=== PATIENT | male | born 1975 | race Caucasian/White ===

== ENCOUNTER 2016-08-17 06:12 | Emergency (ER) | payer SELFPAY ==
[2016-08-17] MEDS ORDERED: IBUPROFEN 800 MG TABLET PO ONE (07:55)
--- NOTE | 2016-08-17 08:52 | RADIOLOGY REPORT (SQ) ---
EXAM DESCRIPTION: RIBS RIGHT W/PA CHEST COMPLETED DATE/TIME: 08/17/2016 8:07 am REASON FOR STUDY: 3 rib fx 2 weeks ago COMPARISON: None. TECHNIQUE: Frontal view of the chest and additional views of the right ribs acquired. NUMBER OF VIEWS: PA CHEST, right rib detail three views LIMITATIONS: None. FINDINGS: FRONTAL CXR: No pneumothorax. No pleural effusion. No atelectasis or infiltrates. Cardi ac silhouette size, annelise unremarkable. RIBS: Acute or subacute right posterior 5th rib with over riding of the distal fracture fragment by 2 cm. Acute or early subacute right lateral 7th, 8th and 9th rib fractures are present. No left-sided rib fractures are present. OTHER: Other bony structures in the field of view are intact. IMPRESSION: NO PNEUMOTHORAX. Right-sided 5th, 7th 8th and 9th rib fractures. COMMENT: SITE OF TRAUMA/COMPLAINT MARKED/STAMP COMPLETED: YES. TECHNICAL DOCUMENTATION: JOB ID: [id number] [employer]- All Rights Reserved
--- NOTE | 2016-08-17 08:57 | ER Document Report ---
ED General - General Chief Complaint: Rib Pain Stated Complaint: BACK PAIN Time Seen by Provider: 08/17/16 07:26 Mode of Arrival: Ambulatory Information source: Patient Notes: 41-year-old male history of fall 2 weeks ago with after 3 rib fractures presents with complaints of sharp pain in his back where his rib is broken. Patient denies any numbness or weakness loss of bowel or bladder function. Patient states that the pain improved significantly with Motrin, that he was given narcotics but he threw it away since it caused him to be constipated TRAVEL OUTSIDE OF THE [place] IN LAST 30 DAYS: No - HPI Onset: Other - 2 week Duration Onset/Duration: Persistent Quality of pain: Sharp Severity: Mild Pain Level: 1 Associated symptoms: None Exacerbated by: Movement Relieved by: Denies Similar symptoms previously: Yes Recently seen / treated by doctor: Yes - Related Data Allergies/Adverse Reactions: No Known Allergies Allergy (Verified 08/17/16 07:44) Home Medications: Current Home Medications No Home Medications 08/17/16 [History] Past Medical History - Social History Smoking Status: Never Smoker Cigarette use (# per day): No Chew tobacco use (# tins/day): No Smoking Education Provided: No Frequency of alcohol use: Occasional Drug Abuse: Marijuana Family History: Reviewed & Not Pertinent Patient has suicidal ideation: No Patient has homicidal ideation: No Pulmonary Medical History: Denies: Hx Tuberculosis Renal/ Medical History: Denies: Hx Peritoneal Dialysis Past Surgical History: Denies: Hx Pacemaker - Immunizations Hx Diphtheria, Pertussis, Tetanus Vaccination: No Review of Systems - Review of Systems Notes: REVIEW OF SYSTEMS: CONSTITUTIONAL : Denies fever, chills, or sweats. Denies recent illness. EENT: Denies eye, ear, throat, or mouth pain or symptoms. Denies nasal or sinus congestion or discharge. Denies throat, tongue, or mouth swelling or difficulty swallowing. CARDIOVASCULAR: Denies chest pain. Denies palpitations or racing or irregular heart beat. Denies ankle edema. RESPIRATORY: Denies cough, cold, or chest congestion. Denies shortness of breath, difficulty breathing, or wheezing. GASTROINTESTINAL: Denies abdominal pain or distention. Denies nausea, vomiting , or diarrhea. Denies blood in vomitus, stools, or per rectum. Denies black, tarry stools. Denies constipation. GENITOURINARY: Denies difficulty urinating, painful urination, burning, frequency, blood in urine, or discharge. MUSCULOSKELETAL: Admits to right posterior rib pain SKIN: Denies rash, lesions or sores. HEMATOLOGIC : Denies easy bruising or bleeding. LYMPHATIC: Denies swollen, enlarged glands. NEUROLOGICAL: Denies confusion or altered mental status. Denies passing out or loss of consciousness. Denies dizziness or lightheadedness. Denies headache. Denies weakness or paralysis or loss of use of either side. Denies problems with gait or speech. Denies sensory loss, numbness, or tingling. Denies seizures. PSYCHIATRIC: Denies anxiety or stress. Denies depression, suicidal ideation, or homicidal ideation. ALL OTHER SYSTEMS REVIEWED AND NEGATIVE. Dictation was performed using [employer] voice recognition software PHYSICAL EXAMINATION: GENERAL: Well-appearing, well-nourished and in no acute distress. HEAD: Atraumatic, normocephalic. EYES: Pupils equal round and reactive to light, extraocular movements intact, sclera anicteric, conjunctiva are normal. ENT: Nares patent, oropharynx clear without exudates. Moist mucous membranes. NECK: Normal range of motion, supple without lymphadenopathy LUNGS: Breath sounds clear to auscultation bilaterally and equal. No wheezes rales or rhonchi. HEART: Regular rate and rhythm without murmurs ABDOMEN: Soft, nontender, nondistended abdomen. No guarding, no rebound. No masses appreciated. Musculoskeletal: Normal range of motion, no pitting or edema. No cyanosis. NEUROLOGICAL: Cranial nerves grossly intact. Normal speech, normal gait. Normal sensory, motor exams PSYCH: Normal mood, normal affect. SKIN: Warm, Dry, normal turgor, no rashes or lesions noted. Physical Exam - Vital signs Vitals: Temp Pulse Resp BP Pulse Ox 97.3 F 91 18 128/89 H 98 08/17/16 06:18 08/17/16 06:18 08/17/16 06:18 08/17/16 06:18 08/17/16 06:18 Course - Re-evaluation Re-evalutation: 08/17/16 08:55 Patient looks extremely well he has done quite well for someone with multiple rib fractures repeat x-ray does note for rib fractures, patient believes he only had 3. Otherwise she looks well is in no distress having no fevers no shortness of breath no pneumothorax. Patient will be discharged home to continue with Motrin He wishes to be cleared for work and I believe as long as he is not over exerting himself he will be stable to do so After performing a Medical Screening Examination, I estimate there is LOW risk for RUPTURED ESOPHAGUS, PNEUMOTHORAX, PULMONARY EMBOLISM, ACUTE CORONARY SYNDROME, OR THORACIC AORTIC DISSECTION, thus I consider the discharge disposition reasonable. I have reevaluated this patient multiple times and no significant life threatening changes are noted. The patient and I have discussed the diagnosis and risks, and we agree with discharging home with close follow-up. We also discussed returning to the Emergency Department immediately if new or worsening symptoms occur. We have discussed the symptoms which are most concerning (e.g., bloody sputum, worsening pain or shortness of breath) that necessitate immediate return. - Vital Signs Vital signs: Temp Pulse Resp BP Pulse Ox 97.3 F 91 18 128/89 H 98 08/17/16 06:18 08/17/16 06:18 08/17/16 06:18 08/17/16 06:18 08/17/16 06:18 - Diagnostic Test Radiology reviewed: Image reviewed, Reports reviewed - rib fx , report given to patient Discharge - Discharge Clinical Impression: Ribs, multiple fractures Qualifiers: Encounter type: subsequent encounter Fracture type: closed Laterality: right Fracture healing: with routine healing Qualified Code(s): S22.41XD - Multiple fractures of ribs, right side, subsequent encounter for fracture with routine healing Condition: Stable Disposition: HOME, SELF-CARE Instructions: Rib Injuries and Fractures ([facility]) Forms: Return to Work Referrals: YOLI RIVERA MD [Primary Care Provider] - Follow up tomorrow
[2016-08-17 09:03] VITALS: BP 126/86
== END 2016-08-17 09:03 | disposition home or self-care (01) ==
LOC: ER 06:12
DX: S22.41XD Multiple fractures of ribs, right side, subsequent encounter for fracture with routine healing (principal); W19.XXXD Unspecified fall, subsequent encounter; Y99.0 Civilian activity done for income or pay
CPT/HCPCS: 99283

== ENCOUNTER 2017-08-06 05:37 | Emergency (ER) | payer SELFPAY ==
[2017-08-06] MEDS ORDERED: HYDROXYZINE PAMOATE 50 MG CAPSULE PO ONE (07:34)
--- NOTE | 2017-08-06 07:41 | ER Document Report ---
ED General - General Chief Complaint: Psych Problem Stated Complaint: ANXIETY Time Seen by Provider: 08/06/17 06:08 TRAVEL OUTSIDE OF THE [place] IN LAST 30 DAYS: No - HPI Patient complains to provider of: Anxiety Notes: Patient coming in for evaluation of anxiety. Patient states feeling much better after waiting here in ER. Patient states recently lost both his parents. Patient states he thinks about it although it has been gaining throughout the day to do most time take his mind off patient states he was seen by psychiatric providers here in the [facility] port and was given medication he thinks was called Vistaril patient states he left the medication in his pocket that went to the wash machine. Patient otherwise denies any homicidal suicidal ideation. Denies any fever chills nausea vomiting diarrhea. - Related Data Allergies/Adverse Reactions: No Known Allergies Allergy (Verified 08/17/16 07:44) Past Medical History - Social History Smoking Status: Never Smoker Chew tobacco use (# tins/day): No Frequency of alcohol use: Occasional Drug Abuse: None Family History: Reviewed & Not Pertinent Patient has suicidal ideation: No Patient has homicidal ideation: No Pulmonary Medical History: Denies: Hx Tuberculosis Renal/ Medical History: Denies: Hx Peritoneal Dialysis Past Surgical History: Denies: Hx Pacemaker - Immunizations Hx Diphtheria, Pertussis, Tetanus Vaccination: No Review of Systems - Review of Systems Constitutional: No symptoms reported EENT: No symptoms reported Cardiovascular: No symptoms reported Respiratory: No symptoms reported Gastrointestinal: No symptoms reported Genitourinary: No symptoms reported Male Genitourinary: No symptoms reported Musculoskeletal: No symptoms reported Skin: No symptoms reported Hematologic/Lymphatic: No symptoms reported Neurological/Psychological: Anxiety -: Yes All other systems reviewed and negative Physical Exam - Vital signs Vitals: Temp Pulse Resp BP Pulse Ox 97.9 F 99 18 122/85 99 08/06/17 05:40 08/06/17 05:40 08/06/17 05:40 08/06/17 05:40 08/06/17 05:40 Interpretation: Normal - General General appearance: Appears well, Alert - HEENT Head: Normocephalic, Atraumatic Eyes: Normal Pupils: PERRL - Respiratory Respiratory status: No respiratory distress Chest status: Nontender Breath sounds: Normal Chest palpation: Normal - Cardiovascular Rhythm: Regular Heart sounds: Normal auscultation Murmur: No - Abdominal Inspection: Normal Distension: No distension Bowel sounds: Normal Tenderness: Nontender Organomegaly: No organomegaly - Back Back: Normal, Nontender - Extremities General upper extremity: Normal inspection, Nontender, Normal color, Normal ROM , Normal temperature General lower extremity: Normal inspection, Nontender, Normal color, Normal ROM , Normal temperature, Normal weight bearing. No: Mady's sign - Neurological Neuro grossly intact: Yes Cognition: Normal Orientation: AAOx4 [place] Coma Scale Eye Opening: Spontaneous [place] Coma Scale Verbal: Oriented [place] Coma Scale Motor: Obeys Commands Magy Coma Scale Total: 15 Speech: Normal Motor strength normal: LUE, RUE, LLE, RLE Sensory: Normal - Psychological Associated symptoms: Normal affect, Normal mood - Skin Skin Temperature: Warm Skin Moisture: Dry Skin Color: Normal Course - Re-evaluation Re-evalutation: 08/06/17 08:50 Patient coming in for evaluation for anxiety. Patient has no worrisome features on examination of HI or SI. Patient states was on Vistaril did explain to the patient given prescription for Restoril for the next few weeks until he can follow-up with his appointment to see Berta on the . Patient states that this would be great patient was discharged home - Vital Signs Vital signs: Temp Pulse Resp BP Pulse Ox 97.9 F 98 16 122/83 98 08/06/17 05:40 08/06/17 06:56 08/06/17 06:56 08/06/17 06:56 08/06/17 06:56 Discharge - Discharge Clinical Impression: Anxiety Condition: Good Disposition: HOME, SELF-CARE Instructions: Anxiety ([facility]) Additional Instructions: Follow-up with your primary care physician. At this time your evaluation does not show any serious concerns no need for any antibiotics admission to the hospital. I will give you medication to help out with her anxiety call Vistamekaril. Please take this at nighttime. Please be aware that this medication will make you sleepy. Follow-up with your psychiatric providers as scheduled return to ER for any concerns Prescriptions: Hydroxyzine Pamoate [Vistaril 50 mg Capsule] 50 mg PO QHS #30 capsule Forms: Return to Work Referrals: YOLI RIVERA MD [Primary Care Provider] - Follow up as needed
[2017-08-06 08:11] VITALS: BP 115/83
== END 2017-08-06 08:16 | disposition home or self-care (01) ==
LOC: ER 05:37
DX: F41.9 Anxiety disorder, unspecified (principal)
CPT/HCPCS: 99283